=== PATIENT | female | born 1975 | race Caucasian/White ===

== ENCOUNTER 2017-01-01 10:12 | Emergency (ER) | payer BC | END 2017-01-01 12:56 | disposition home or self-care (01) | LOC: ER 10:12 | DX: R19.7 Diarrhea, unspecified (principal); R11.0 Nausea; R53.1 Weakness; F32.9 Major depressive disorder, single episode, unspecified; F41.9 Anxiety disorder, unspecified; D64.9 Anemia, unspecified; Z90.710 Acquired absence of both cervix and uterus; Z79.899 Other long term (current) drug therapy; Z88.2 Allergy status to sulfonamides | CPT/HCPCS: 36415; 96361; 96374; Q9963; Q9967 ==

== ENCOUNTER 2017-01-10 21:34 | Emergency (ER) | payer BC | END 2017-01-10 23:13 | disposition home or self-care (01) | LOC: ER 21:34 | DX: R10.32 Left lower quadrant pain (principal); R19.7 Diarrhea, unspecified; K64.9 Unspecified hemorrhoids; K91.1 Postgastric surgery syndromes; F32.9 Major depressive disorder, single episode, unspecified; F41.9 Anxiety disorder, unspecified; D64.9 Anemia, unspecified; Z90.710 Acquired absence of both cervix and uterus; Z79.899 Other long term (current) drug therapy; Z88.2 Allergy status to sulfonamides | CPT/HCPCS: 36415; 96361; 96374; 96375 ==